=== PATIENT | male | born 1975 | race African-American/Black ===

== ENCOUNTER 2016-08-17 09:22 | Emergency (ER) | payer SELFPAY ==
[~2016-08-17] VITALS: Ht 172.7 cm; Wt 77.1 kg
--- NOTE | 2016-08-17 09:40 | PHYS DOC ---
Past Medical History Past Medical History: No Pertinent History Past Surgical History: No Surgical History Alcohol Use: Occasionally Drug Use: Marijuana Adult General Chief Complaint Chief Complaint: NAUSEA/VOMITING/DIARRHA HPI HPI Patient is a 40 year old male presents to the emergency department with complaints of vomiting and abdominal pain beginning this morning at approximately 5 AM, 4 hours prior to arrival. He states that yesterday evening he ate a piece of pizza with peppers and after that developed burning in his epigastric region. He states he's had no fever, no diarrhea. He does report a history of pancreatitis and did drink alcohol 2 days ago. Review of Systems Review of Systems Constitutional: Denies fever or chills [] Eyes: Denies change in visual acuity, redness, or eye pain [] HENT: Denies nasal congestion or sore throat [] Respiratory: Denies cough or shortness of breath [] Cardiovascular: No additional information not addressed in HPI [] GI: Abdominal pain, vomiting. No diarrhea. : Denies dysuria or hematuria [] Musculoskeletal: Denies back pain or joint pain [] Integument: Denies rash or skin lesions [] Neurologic: Denies headache, focal weakness or sensory changes [] Endocrine: Denies polyuria or polydipsia [] Current Medications Current Medications Current Medications Medications (Trade) Dose Ordered Sig/Zhang Start Time Stop Time Status Last Admin Dose Admin Info (Do NOT chart on this entry -- for MONITORING) 1 each PRN DAILY PRN 08/17/16 10:30 08/19/16 10:29 Iohexol (Omnipaque 300 Mg/ml) 75 ml 1X ONCE 08/17/16 10:30 08/17/16 10:31 DC 08/17/16 11:04 75 ML Ketorolac Tromethamine (Toradol) 30 mg 1X ONCE 08/17/16 10:15 08/17/16 10:17 DC 08/17/16 10:29 30 MG Morphine Sulfate 4 mg 1X ONCE 08/17/16 11:00 08/17/16 11:01 DC 08/17/16 10:55 4 MG Ondansetron HCl (Zofran) 4 mg 1X ONCE 08/17/16 09:45 08/17/16 09:46 DC 08/17/16 09:50 4 MG Sodium Chloride 1,000 ml @ 1,000 mls/hr 1X ONCE 08/17/16 09:45 08/17/16 10:44 DC 08/17/16 09:50 1,000 MLS/HR Allergies Allergies Allergies Coded Allergies Type Severity Reaction Last Updated Verified No Known Drug Allergies 05/07/15 No Physical Exam Physical Exam Constitutional: Well developed, well nourished, non-toxic appearance. [] HENT: Normocephalic, atraumatic, bilateral external ears normal, oropharynx moist, no oral exudates, nose normal. [] Eyes: PERRLA, EOMI, conjunctiva normal, no discharge. [] Neck: Normal range of motion, no tenderness, supple, no stridor. [] Cardiovascular:Heart rate regular rhythm, no murmur [] Lungs & Thorax: Bilateral breath sounds clear to auscultation, patient's hyperventilating [] Abdomen: Abdomen is flat, soft, nondistended. Bowel sounds normoactive. He has diffuse tenderness on exam without localization. There are no masses or pulsatile masses. Skin: Warm, dry, no erythema, no rash. [] Back: No tenderness, no CVA tenderness. [] Extremities: No tenderness, no cyanosis, no clubbing, ROM intact, no edema. [] Neurologic: Alert and oriented X 3, normal motor function, normal sensory function, no focal deficits noted. [] Psychologic: Affect normal, judgement normal, mood normal. [] Current Patient Data Vital Signs Vital Signs Date Time Temp Pulse Resp B/P (MAP) Pulse Ox O2 Delivery O2 Flow Rate FiO2 08/17/16 11:00 88 18 139/79 (99) 99 Room Air 08/17/16 09:34 99.1 99.1 Lab Values Laboratory Tests Test 08/17/16 09:45 08/17/16 11:00 White Blood Count 15.5 x10^3/uL (4.0-11.0) H Red Blood Count 5.23 x10^6/uL (4.30-5.70) Hemoglobin 15.7 g/dL (13.0-17.5) Hematocrit 44.1 % (39.0-53.0) Mean Corpuscular Volume 84 fL (79-100) Mean Corpuscular Hemoglobin 30 pg (25-35) Mean Corpuscular Hemoglobin Concent 36 g/dL (31-37) Red Cell Distribution Width 13.8 % (11.5-14.5) Platelet Count 244 x10^3/uL (140-400) Neutrophils (%) (Auto) 78 % (31-73) H Lymphocytes (%) (Auto) 15 % (24-48) L Monocytes (%) (Auto) 4 % (0-9) Eosinophils (%) (Auto) 2 % (0-3) Basophils (%) (Auto) 1 % (0-3) Neutrophils # (Auto) 12.1 x10^3uL (1.8-7.7) H Lymphocytes # (Auto) 2.3 x10^3/uL (1.0-4.8) Monocytes # (Auto) 0.7 x10^3/uL (0.0-1.1) Eosinophils # (Auto) 0.3 x10^3/uL (0.0-0.7) Basophils # (Auto) 0.1 x10^3/uL (0.0-0.2) Sodium Level 139 mmol/L (136-145) Potassium Level 3.5 mmol/L (3.5-5.1) Chloride Level 104 mmol/L (98-107) Carbon Dioxide Level 20 mmol/L (21-32) L Anion Gap 15 (6-14) H Blood Urea Nitrogen 16 mg/dL (8-26) Creatinine 1.2 mg/dL (0.7-1.3) Estimated GFR (Cockcroft-Gault) 81.6 BUN/Creatinine Ratio 13 (6-20) Glucose Level 153 mg/dL (70-99) H Calcium Level 9.5 mg/dL (8.5-10.1) Total Bilirubin 0.6 mg/dL (0.2-1.0) Aspartate Amino Transferase (AST) 29 U/L (15-37) Alanine Aminotransferase (ALT) 38 U/L (16-63) Alkaline Phosphatase 142 U/L (46-116) H Total Protein 7.7 g/dL (6.4-8.2) Albumin 3.8 g/dL (3.4-5.0) Albumin/Globulin Ratio 1.0 (1.0-1.7) Amylase Level 90 U/L (25-115) Lipase 215 U/L (73-393) Urine Collection Type Unknown Urine Color Yellow Urine Clarity Clear Urine pH 8.0 Urine Specific [place] 1.010 Urine Protein Negative mg/dL (NEG-TRACE) Urine Glucose (UA) 100 mg/dL (NEG) Urine Ketones (Stick) Negative mg/dL (NEG) Urine Blood Negative (NEG) Urine Nitrite Negative (NEG) Urine Bilirubin Negative (NEG) Urine Urobilinogen Dipstick 0.2 mg/dL (0.2 mg/dL) Urine Leukocyte Esterase Negative (NEG) Urine RBC Occ /HPF (0-2) Urine WBC Occ /HPF (0-4) Urine Bacteria 0 /HPF (0-FEW) Urine Mucus Slight /LPF Laboratory Tests 08/17/16 09:45 Laboratory Tests 08/17/16 09:45 EKG EKG [] Radiology/Procedures Radiology/Procedures []ATIENT: JOSSELYN HOFFMAN ACCOUNT: [id number] : 1975 LOCATION: ER AGE: 40 SEX: M EXAM STATUS: REG ER ORD. PHYSICIAN: YONATAN REDDY APRN REASON: ABD pain, leukocytosis PROCEDURE: CT ABD PELV W/ IV CONTRST ONLY CT of the abdomen and pelvis with contrast, 08/17/2016: History: Abdominal pain, leukocytosis Multidetector CT imaging was performed following an IV bolus injection of iodinated contrast material. No oral contrast material was administered for this study. Portions of the midabdomen were partially obscured by motion artifact. The liver is unremarkable. No gallbladder abnormality is seen. The pancreas cannot be clearly from unopacified bowel, but shows no specific abnormality. The spleen is of normal size. There is no evidence of renal obstruction or mass. There is minimal aortic calcific plaquing. No abdominal or pelvic adenopathy is seen. The bowel loops are not dilated. The appendix extends superiorly in the right paracolic gutter. It contains gas without evidence of acute appendicitis. No free air is evident in the abdomen or pelvis. A trace amount of free fluid is seen seen in the pelvis. IMPRESSION: 1. Minimal free fluid in the pelvis. 2. The abdomen and pelvis are otherwise unremarkable. PQRS Compliance Statement: One or more of the following individualized dose reduction techniques were utilized for this examination: 1. Automated exposure control 2. Adjustment of the mA and/or kV according to patient size 3. Use of iterative reconstruction technique DICTATED and SIGNED BY: AN PAVON MD DATE: 08/17/16 1155 CC: NO PCP; NON,STAFF; YONATAN REDDY APRN ~ Course & Med Decision Making Course & Med Decision Making Pertinent Labs and Imaging studies reviewed. (See chart for details) Pt reports that he has decreased in pain and was able to sleep at intervals. He is requesting more pain medications. He states his nausea is well controlled. He is advised at this time of his wait for CT abdomen and pelvis []1213: Patient is sleeping, appears to be comfortable. Awakens easily. He has no complaints. Abdomen soft, nontender. He's had no further vomiting while in the emergency department. Dragon Disclaimer Dragon Disclaimer This electronic medical record was generated, in whole or in part, using a voice recognition dictation system. Departure Departure Impression: Primary Impression: Gastroenteritis Disposition: HOME, SELF-CARE Condition: STABLE Referrals: NO PCP (PCP) Patient Instructions: Viral Gastroenteritis Additional Instructions: Clear liquid diet for 24 hours. No further vomiting or abdominal pain, advanced to bland diet. Please return to the emergency department if you have new symptoms or concerns, worsening of current symptoms, fever of 101 or greater. Plan to follow up with her primary care provider for reevaluation 24 hours. Scripts Ondansetron (ZOFRAN ODT) 4 Mg Tab.rapdis 1 TAB SL Q8HRS Y for NAUSEA, #15 TAB Prov: YONATAN REDDY APRN 08/17/16 Dicyclomine Hcl (BENTYL) 10 Mg Capsule 1 CAP PO TID Y for abd pain, #20 CAP 1 Refill Prov: YONATAN REDDY APRN 08/17/16 YONATAN REDDY APRN Aug 17, 2016 09:40
[2016-08-17] MEDS ORDERED: MORPHINE SULFATE 4 MG/ML DISP.SYRIN. IV ONE ×2 (09:45→11:00)
[2016-08-17] MEDS ORDERED: ONDANSETRON PF 4 MG/2 ML VIAL. IV ONE (09:45)
[2016-08-17] MEDS ORDERED: IV NORMAL SALINE 1000ML BAG 1,000 ML IV ONE (09:45)
[2016-08-17 09:52] LABS: BASO # 0.1 x10^3/uL (0.0-0.2); BASO % 1 % (0-3); EOS % 2 % (0-3); HEMATOCRIT 44.1 % (39.0-53.0); HEMOGLOBIN 15.7 g/dL (13.0-17.5); LYMPH # 2.3 x10^3/uL (1.0-4.8); LYMPH % 15 % (24-48); MEAN CORPUSCULAR HEMOGLOBIN 30 pg (25-35); MEAN CORPUSCULAR HGB CONC 36 g/dL (31-37); MEAN CORPUSCULAR VOLUME 84 fL (79-100); MONO % 4 % (0-9); NEUT % 78 % (31-73); PLATELET COUNT 244 x10^3/uL (140-400); RED BLOOD COUNT 5.23 x10^6/uL (4.30-5.70); RED CELL DISTRIBUTION WIDTH 13.8 % (11.5-14.5); WHITE BLOOD COUNT 15.5 x10^3/uL (4.0-11.0)
[2016-08-17 10:03] LABS: CALCIUM 9.5 mg/dL (8.5-10.1); CREATININE 1.2 mg/dL (0.7-1.3); GFR 81.6; POTASSIUM 3.5 mmol/L (3.5-5.1)
[2016-08-17 10:09] LABS: ALBUMIN 3.8 g/dL (3.4-5.0); TOTAL BILIRUBIN 0.6 mg/dL (0.2-1.0); TOTAL PROTEIN 7.7 g/dL (6.4-8.2)
[2016-08-17] MEDS ORDERED: KETOROLAC TROMETHAMINE 30 MG/ML INJ. IV ONE (10:15)
[2016-08-17] MEDS ORDERED: CONTRAST GIVEN MC PRN (10:30)
[2016-08-17] MEDS ORDERED: IOHEXOL 300 MG/ML 75 ML VIAL IV ONE (10:30)
[2016-08-17 11:11] LABS: BILIRUBIN,URINE NEGATIVE (NEG); GLUCOSE,URINE 100 mg/dL (NEG); NITRITE,URINE NEGATIVE (NEG); PROTEIN,URINE NEGATIVE (NEG-TRACE); UROBILINOGEN,URINE 0.2 mg/dL (0.2 mg/dL)
[2016-08-17 11:18] LABS: BACTERIA,URINE 0 /HPF (0-FEW); RBC,URINE OCC /HPF (0-2); WBC,URINE OCC /HPF (0-4)
[2016-08-17 12:00] VITALS: BP 131/79
--- NOTE | 2016-08-17 12:06 | RAD ---
CT of the abdomen and pelvis with contrast, 08/17/2016: History: Abdominal pain, leukocytosis Multidetector CT imaging was performed following an IV bolus injection of iodinated contrast material. No oral contrast material was administered for this study. Portions of the midabdomen were partially obscured by motion artifact. The liver is unremarkable. No gallbladder abnormality is seen. The pancreas cannot be clearly from unopacified bowel, but shows no specific abnormality. The spleen is of normal size. There is no evidence of renal obstruction or mass. There is minimal aortic calcific plaquing. No abdominal or pelvic adenopathy is seen. The bowel loops are not dilated. The appendix extends superiorly in the right paracolic gutter. It contains gas without evidence of acute appendicitis. No free air is evident in the abdomen or pelvis. A trace amount of free fluid is seen seen in the pelvis. IMPRESSION: 1. Minimal free fluid in the pelvis. 2. The abdomen and pelvis are otherwise unremarkable. PQRS Compliance Statement: One or more of the following individualized dose reduction techniques were utilized for this examination: 1. Automated exposure control 2. Adjustment of the mA and/or kV according to patient size 3. Use of iterative reconstruction technique
[2016-08-17] MEDS ORDERED: ONDA4TAB10 SL (12:16)
[2016-08-17] MEDS ORDERED: DICY10CA53 PO (12:16)
== END 2016-08-17 12:15 | disposition home or self-care (01) ==
LOC: ER 09:22
DX: K52.9 Noninfective gastroenteritis and colitis, unspecified (principal); F12.10 Cannabis abuse, uncomplicated
CPT/HCPCS: 36415; 74177; 80053; 81001; 82150; 83690; 85027; 96361; 96374; 96375; 96376; 99285; J1885; J2270; J2405; J7030; Q9967

== ENCOUNTER 2016-08-19 08:51 | Inpatient (IN) | payer SELFPAY ==
[~2016-08-19] VITALS: Ht 175.3 cm; Wt 77.1 kg
[~2016-08-19 08:51] MED LIST: DICY10CA53 PO; ONDA4TAB10 SL
[2016-08-19] MEDS ORDERED: ONDANSETRON PF 4 MG/2 ML VIAL. IV ONE (09:15)
[2016-08-19] MEDS ORDERED: PROMETHAZINE IM 25 MG/ML VIAL IM ONE (09:15)
[2016-08-19] MEDS ORDERED: IV NORMAL SALINE 1000ML BAG 1,000 ML IV ONE (09:15)
--- NOTE | 2016-08-19 09:17 | PHYS DOC ---
Past Medical History Past Medical History: Pancreatitis Past Surgical History: No Surgical History Alcohol Use: Occasionally Drug Use: Marijuana Adult General Chief Complaint Chief Complaint: ABDOMINAL PAIN HPI HPI Patient is a 40 year old male presents to the emergency department by EMS with c/o abdominal pain. Patient states he was seen here Wednesday for abdominal pain and vomiting. He was given medications and discharged home. He states last night he was able to eat and he had ice cream he states the pain developed today with vomiting. He denies alcohol since last Wednesday. He denies fever, chills and diarrhea. Review of Systems Review of Systems Constitutional: Denies fever or chills [] Eyes: Denies change in visual acuity, redness, or eye pain [] HENT: Denies nasal congestion or sore throat [] Respiratory: Denies cough or shortness of breath [] Cardiovascular: No additional information not addressed in HPI [] GI: abdominal pain, nausea, vomiting, denies bloody stools or diarrhea [] : Denies dysuria or hematuria [] Musculoskeletal: Denies back pain or joint pain [] Integument: Denies rash or skin lesions [] Neurologic: Denies headache, focal weakness or sensory changes [] Endocrine: Denies polyuria or polydipsia [] Current Medications Current Medications Current Medications Medications (Trade) Dose Ordered Sig/Zhang Start Time Stop Time Status Last Admin Dose Admin Fentanyl Citrate (Fentanyl 2ml Vial) 50 mcg PRN Q15MIN PRN 08/19/16 09:15 08/20/16 09:14 08/19/16 10:14 50 MCG Haloperidol Lactate (Haldol) 2 mg 1X ONCE 08/19/16 10:15 08/19/16 10:16 DC 08/19/16 10:14 2 MG Info (Do NOT chart on this entry -- for MONITORING) 1 each PRN DAILY PRN 08/19/16 10:00 08/21/16 09:59 Iohexol (Omnipaque 300 Mg/ml) 75 ml 1X ONCE 08/19/16 09:45 08/19/16 09:46 DC 08/19/16 10:38 75 ML Ondansetron HCl (Zofran) 4 mg 1X ONCE 08/19/16 09:15 08/19/16 09:16 DC 08/19/16 09:21 4 MG Promethazine HCl (Phenergan Im) 25 mg 1X ONCE 08/19/16 09:15 08/19/16 09:16 DC 08/19/16 09:21 25 MG Sodium Chloride 1,000 ml @ 1,000 mls/hr 1X ONCE 08/19/16 09:15 08/19/16 10:14 DC 08/19/16 09:22 1,000 MLS/HR Allergies Allergies Allergies Coded Allergies Type Severity Reaction Last Updated Verified No Known Drug Allergies 05/07/15 No Physical Exam Physical Exam Constitutional: Well developed, well nourished, no acute distress, non-toxic appearance. [] HENT: Normocephalic, atraumatic, bilateral external ears normal, oropharynx moist, no oral exudates, nose normal. [] Eyes: PERRLA, EOMI, conjunctiva normal, no discharge. [] Neck: Normal range of motion, no tenderness, supple, no stridor. [] Cardiovascular:Heart rate regular rhythm, no murmur [] Lungs & Thorax: Bilateral breath sounds clear to auscultation [] Abdomen: Bowel sounds hypoactive, soft, generalized tenderness, no masses, no pulsatile masses. Patient with clear mucus emesis Skin: Warm, dry, no erythema, no rash. [] Back: No tenderness Extremities: No tenderness, no cyanosis, no clubbing, ROM intact, no edema. [] Neurologic: Alert and oriented X 3, normal motor function, normal sensory function, no focal deficits noted. [] Psychologic: Affect normal, judgement normal, mood normal. [] Current Patient Data Vital Signs Vital Signs Date Time Temp Pulse Resp B/P (MAP) Pulse Ox O2 Delivery O2 Flow Rate FiO2 08/19/16 08:53 98.5 78 26 172/84 (113) 100 Room Air 98.5 Lab Values Laboratory Tests Test 08/19/16 09:14 White Blood Count 13.4 x10^3/uL (4.0-11.0) H Red Blood Count 5.32 x10^6/uL (4.30-5.70) Hemoglobin 16.1 g/dL (13.0-17.5) Hematocrit 45.3 % (39.0-53.0) Mean Corpuscular Volume 85 fL (79-100) Mean Corpuscular Hemoglobin 30 pg (25-35) Mean Corpuscular Hemoglobin Concent 36 g/dL (31-37) Red Cell Distribution Width 13.9 % (11.5-14.5) Platelet Count 262 x10^3/uL (140-400) Neutrophils (%) (Auto) 74 % (31-73) H Lymphocytes (%) (Auto) 17 % (24-48) L Monocytes (%) (Auto) 6 % (0-9) Eosinophils (%) (Auto) 3 % (0-3) Basophils (%) (Auto) 1 % (0-3) Neutrophils # (Auto) 9.9 x10^3uL (1.8-7.7) H Lymphocytes # (Auto) 2.3 x10^3/uL (1.0-4.8) Monocytes # (Auto) 0.8 x10^3/uL (0.0-1.1) Eosinophils # (Auto) 0.3 x10^3/uL (0.0-0.7) Basophils # (Auto) 0.1 x10^3/uL (0.0-0.2) Sodium Level 135 mmol/L (136-145) L Potassium Level 4.2 mmol/L (3.5-5.1) Chloride Level 102 mmol/L (98-107) Carbon Dioxide Level 22 mmol/L (21-32) Anion Gap 11 (6-14) Blood Urea Nitrogen 8 mg/dL (8-26) Creatinine 1.2 mg/dL (0.7-1.3) Estimated GFR (Cockcroft-Gault) 81.6 BUN/Creatinine Ratio 7 (6-20) Glucose Level 123 mg/dL (70-99) H Calcium Level 9.3 mg/dL (8.5-10.1) Total Bilirubin 0.9 mg/dL (0.2-1.0) Aspartate Amino Transferase (AST) 38 U/L (15-37) H Alanine Aminotransferase (ALT) 30 U/L (16-63) Alkaline Phosphatase 119 U/L (46-116) H Total Protein 8.0 g/dL (6.4-8.2) Albumin 3.6 g/dL (3.4-5.0) Albumin/Globulin Ratio 0.8 (1.0-1.7) L Amylase Level 85 U/L (25-115) Lipase 204 U/L (73-393) Ethyl Alcohol Level < 10 mg/dL (0-10) Laboratory Tests 08/19/16 09:14 Laboratory Tests 08/19/16 09:14 EKG EKG [] Radiology/Procedures Radiology/Procedures [][facility] [address] [place] [address] IMAGING REPORT Signed PATIENT: JOSSELYN HOFFMAN ACCOUNT: [id number] : 1975 LOCATION: ER AGE: 40 SEX: M EXAM STATUS: REG ER ORD. PHYSICIAN: ROSEANN RODRIGUES APRN REASON: abdominal pain hx pancreatitis PROCEDURE: CT ABD PELV W/ IV CONTRST ONLY CT of the abdomen and pelvis with contrast, 08/19/2016: History: Bilateral upper abdominal pain, history pancreatitis Multidetector CT imaging was performed following an IV bolus injection of iodinated contrast material. No oral contrast material was administered as requested. Comparison is made to a study from 08/17/2016. No hepatic abnormality is detected. The gallbladder is unremarkable. The pancreas cannot be clearly from unopacified bowel but shows no specific abnormality. No peripancreatic inflammation is seen. The spleen is of normal size. No renal abnormality is detected. There is minimal calcific plaquing of the abdominal aorta. No abdominal or pelvic adenopathy is delineated. The bowel loops are not dilated. The appendix is visualized and shows no abnormality. No free fluid or free air is evident in the abdomen or pelvis. IMPRESSION: No acute abdominal or pelvic abnormality is detected. PQRS Compliance Statement: One or more of the following individualized dose reduction techniques were utilized for this examination: 1. Automated exposure control 2. Adjustment of the mA and/or kV according to patient size 3. Use of iterative reconstruction technique DICTATED and SIGNED BY: AN PAVON MD DATE: 08/19/16 1109 CC: ROSEANN RODRIGUES APRN; NO PCP ~ Course & Med Decision Making Course & Med Decision Making Pertinent Labs and Imaging studies reviewed. (See chart for details) CBC, CMP amylase and lipase within normal limits. CT scan normal. Patient continues to have abdominal discomfort with nausea vomiting. Patient had been provided Zofran and Phenergan and Haldol. Spoke with the hospitalist in regards to admission into the hospital. She agrees with the admission. Patient will remain nothing by mouth. Orders will be completed. [] Dragon Disclaimer Dragon Disclaimer This electronic medical record was generated, in whole or in part, using a voice recognition dictation system. Departure Departure Impression: Primary Impression: Abdominal pain Additional Impression: Nausea & vomiting Disposition: ADMITTED INPATIENT Admitting Physician: Other (Dr Vo) Condition: STABLE Referrals: NO PCP (PCP) Problem Qualifiers ROSEANN RODRIGUES APRN Aug 19, 2016 09:16
[2016-08-19] MEDS: fentaNYL PF VIAL 100 MCG/2 ML VIAL IV PRN ×5 (09:21→23:08)
[2016-08-19 09:22] LABS: BASO # 0.1 x10^3/uL (0.0-0.2); BASO % 1 % (0-3); EOS % 3 % (0-3); HEMATOCRIT 45.3 % (39.0-53.0); HEMOGLOBIN 16.1 g/dL (13.0-17.5); LYMPH # 2.3 x10^3/uL (1.0-4.8); LYMPH % 17 % (24-48); MEAN CORPUSCULAR HEMOGLOBIN 30 pg (25-35); MEAN CORPUSCULAR HGB CONC 36 g/dL (31-37); MEAN CORPUSCULAR VOLUME 85 fL (79-100); MONO % 6 % (0-9); NEUT % 74 % (31-73); PLATELET COUNT 262 x10^3/uL (140-400); RED BLOOD COUNT 5.32 x10^6/uL (4.30-5.70); RED CELL DISTRIBUTION WIDTH 13.9 % (11.5-14.5); WHITE BLOOD COUNT 13.4 x10^3/uL (4.0-11.0)
[2016-08-19] MEDS ORDERED: IOHEXOL 300 MG/ML 75 ML VIAL IV ONE (09:45)
[2016-08-19 09:49] LABS: ALBUMIN 3.6 g/dL (3.4-5.0); ALBUMIN/GLOBULIN RATIO 0.8 (1.0-1.7); CALCIUM 9.3 mg/dL (8.5-10.1); CREATININE 1.2 mg/dL (0.7-1.3); GFR 81.6; POTASSIUM 4.2 mmol/L (3.5-5.1); TOTAL BILIRUBIN 0.9 mg/dL (0.2-1.0)
[2016-08-19] MEDS ORDERED: CONTRAST GIVEN MC PRN (10:00)
[2016-08-19] MEDS ORDERED: HALOPERIDOL LACTATE 5 MG/ML VIAL. IVP ONE (10:15)
--- NOTE | 2016-08-19 11:07 | RAD ---
CT of the abdomen and pelvis with contrast, 08/19/2016: History: Bilateral upper abdominal pain, history pancreatitis Multidetector CT imaging was performed following an IV bolus injection of iodinated contrast material. No oral contrast material was administered as requested. Comparison is made to a study from 08/17/2016. No hepatic abnormality is detected. The gallbladder is unremarkable. The pancreas cannot be clearly from unopacified bowel but shows no specific abnormality. No peripancreatic inflammation is seen. The spleen is of normal size. No renal abnormality is detected. There is minimal calcific plaquing of the abdominal aorta. No abdominal or pelvic adenopathy is delineated. The bowel loops are not dilated. The appendix is visualized and shows no abnormality. No free fluid or free air is evident in the abdomen or pelvis. IMPRESSION: No acute abdominal or pelvic abnormality is detected. PQRS Compliance Statement: One or more of the following individualized dose reduction techniques were utilized for this examination: 1. Automated exposure control 2. Adjustment of the mA and/or kV according to patient size 3. Use of iterative reconstruction technique
[2016-08-19] MEDS ORDERED: fentaNYL PF VIAL 100 MCG/2 ML VIAL IV PRN (12:00)
[2016-08-19] MEDS ORDERED: ONDANSETRON PF 4 MG/2 ML VIAL. IV PRN (12:00)
[2016-08-19] MEDS ORDERED: DICYCLOMINE 20 MG/2 ML AMPUL. IM ONE (12:45)
[2016-08-19] MEDS: IV NORMAL SALINE 1000ML BAG 1,000 ML IV SCH ×2 (13:47→21:25)
[2016-08-19 13:50] VITALS: BP 152/86
[2016-08-19 15:00] VITALS: BP 150/84
[2016-08-19] MEDS ORDERED: PROCHLORPERAZINE 10 MG/2 ML VIAL. IV ONE (15:45)
[2016-08-19] MEDS ORDERED: MORPHINE SULFATE 4 MG/ML DISP.SYRIN. IV ONE (15:45)
[2016-08-19] MEDS: ONDANSETRON PF 4 MG/2 ML VIAL. IV PRN (20:02)
[2016-08-19] MEDS: FAMOTIDINE 20 MG/2 ML VIAL IVP SCH (20:37)
[2016-08-19] MEDS: SUCRALFATE 1 GM/10 ML ORAL.SUSP. PEG SCH ×2 (21:08→21:09)
[2016-08-19] MEDS: SUCRALFATE 1 GM/10 ML ORAL.SUSP. PO SCH (21:59)
--- NOTE | 2016-08-19 22:09 | HP ---
ADMIT DATE: 08/19/2016 CHIEF COMPLAINT: Abdominal pain, intractable nausea and vomiting. HISTORY OF PRESENT ILLNESS: The patient is a 40-year-old -[place] gentleman who presented for the second time in 3 days to the Emergency Room complaining of nausea and abdominal pain. On Wednesday, he had been sent home with medications, but stated that last night his symptoms recurred with nausea after eating some ice cream. He developed abdominal pain today with vomiting. Denies any fevers, chills, any diarrhea. No sick contacts at home. On further questioning, he relates that he has had episodes like this in the past. He relates that typically he has some about twice a year and usually goes to [facility] and never had an endoscopy done in the past. PAST MEDICAL HISTORY: Pancreatitis. FAMILY HISTORY: No abdominal abnormalities known. SOCIAL HISTORY: Lives with his sister. 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 Smokes about a pack a day as well as pot on a regular basis. ALLERGIES: No known drug allergies. MEDICATIONS: MAR reconciled with home medications. REVIEW OF SYSTEMS: Positive as per HPI. He denies any blood in his vomitus. Rest of organ system review is benign. PHYSICAL EXAMINATION: VITAL SIGNS: From today show a blood pressure of 150/84, heart rate of 70, respiratory rate at 18. He is afebrile. GENERAL: This is a well-nourished, well-developed 40-year-old -[place]ian gentleman, awake, alert, in mild distress. HEENT: Shows no scleral icterus. NECK: Supple. LUNGS: Clear to auscultation bilaterally. ABDOMEN: Tight, anticipatory flinching, but seems to have pain in the epigastric area. EXTREMITIES: Show no edema, no clubbing, no cyanosis. SKIN: Warm, soft and dry without any rash. EXTREMITIES: He is able to move without any difficulties in bed, although prefers lying curled up in the position. LABORATORY DATA: CBC with a WBC of 13.4, hemoglobin of 16.1, platelets of 262. Chemistries with a BUN and creatinine of 8 and 1.0. Electrolytes within normal limits, AST at 38, alkaline phosphatase at 119, total bili normal. Tox screen negative for alcohol. Drug screen was not obtained. ASSESSMENT AND PLAN: The patient is a 40-year-old gentleman presenting with intractable episodic nausea. He now has abdominal pain after several days of retching. My suspicion is that this is cyclical vomiting syndrome brought on by chronic marijuana use. We will start him on Zofran and Compazine alternatingly to get ahead of the nausea. For his abdominal pain, we will start Carafate as well as famotidine. Can switch to p.o. Protonix in the morning for acid control. He still has fentanyl p.r.n., but I suspect this actually may worsen his nausea symptoms. We will try and minimize. Keep him n.p.o. for now. Continue IV fluids. We will obtain a GI consult for consideration of EGD, although not sure that this is acutely indicated. Discussed with the patient that he needs to stop smoking pot as he may suffer adverse side effects from this acutely. Blood pressure is borderline high. I suspect this may be related to pain. We will monitor for the time being without additional further medication. DAWSON COTTON MD DR: DAVID/madhuri JOB#: [id number] / [id number] CHRISTINE
[2016-08-19 23:00] VITALS: BP 150/97
[2016-08-20 02:37] VITALS: BP 166/99
[2016-08-20] MEDS: IV NORMAL SALINE 1000ML BAG 1,000 ML IV SCH ×3 (03:51→22:38)
[2016-08-20] MEDS: PROCHLORPERAZINE 10 MG/2 ML VIAL. IV PRN ×3 (03:53→20:49)
[2016-08-20] MEDS: fentaNYL PF VIAL 100 MCG/2 ML VIAL IV PRN ×9 (03:53→22:23)
[2016-08-20 05:12] LABS: BASO % 0 % (0-3); EOS % 0 % (0-3); HEMATOCRIT 44.9 % (39.0-53.0); HEMOGLOBIN 15.3 g/dL (13.0-17.5); LYMPH # 1.5 x10^3/uL (1.0-4.8); LYMPH % 11 % (24-48); MEAN CORPUSCULAR HEMOGLOBIN 30 pg (25-35); MEAN CORPUSCULAR HGB CONC 34 g/dL (31-37); MEAN CORPUSCULAR VOLUME 86 fL (79-100); MONO % 7 % (0-9); NEUT % 82 % (31-73); PLATELET COUNT 241 x10^3/uL (140-400); RED BLOOD COUNT 5.19 x10^6/uL (4.30-5.70); RED CELL DISTRIBUTION WIDTH 13.7 % (11.5-14.5)
[2016-08-20 05:28] LABS: CALCIUM 8.9 mg/dL (8.5-10.1); GFR 100.7; POTASSIUM 3.6 mmol/L (3.5-5.1)
[2016-08-20 07:00] VITALS: BP 116/77
[2016-08-20] MEDS: SUCRALFATE 1 GM/10 ML ORAL.SUSP. PO SCH ×4 (08:22→20:53)
[2016-08-20] MEDS: PANTOPRAZOLE 40 MG TABLET.DR. PO SCH (08:22)
[2016-08-20] MEDS: FAMOTIDINE 20 MG/2 ML VIAL IVP SCH (08:23)
[2016-08-20] MEDS: ONDANSETRON PF 4 MG/2 ML VIAL. IV PRN ×2 (08:23→17:14)
--- NOTE | 2016-08-20 09:47 | PDOC2 ---
GI CONSULT Reason For Consult: Nausea, abd pain HPI: HPI: 40 y/o AA male admitted after two ER evaluations this week. Reports five year history of flares of n/v and abdominal pain, sometimes w/ diarrhea. One episode thought to be related to alcohol-induced pancreatitis, another thought to be related to bad food that sat in his car for a few hours, other episodes without clear etiology. Symptoms recurred on Wednesday. The day before was [place] his [place]. He awoke that morning, had a runny stool, started vomiting, and then started having pain superior to umbilicus associated w/ a "bump." Wonders about a hernia. Came to the ER, was discharged to home w/ [place] and [place]. [place] better the next day, ate some chicken noodle soup and a lot of ice cream. [place] bad again w/ vomiting and pain on Wednesday. Currently feeling better but not interested in trying diet. Has noted some nocturnal reflux recently; his girlfriend has given him some medication for this. Last BM was yesterday morning, a soft stool. Uses marijuana almost daily, not fo GI symptoms, but perhaps has helped GI symptoms in the past. No previous EGD or colonoscopy but the thought of either makes him nervous because his mom had an EGD "that tore her esophagus." Denies weight loss, constipation, hematemesis, hematochezia, melena. Did have GI eval here in 2006 for similar symptoms thought to be related to cannabinoids and cocaine use. PMH: PMH: pancreatitis, GERD FH: Family History: Other ("torn esophagus" after EGD) Social History: Smoke: 1 pack per day ALCOHOL: social Drugs: Cocaine (in the past), Marijuana (frequently) ROS: GEN: Denies fevers, chills, sweats HEENT: Denies blurred vision, sore throat CV: Denies chest pain RESP: Denies shortness of air, cough GI: Per HPI : Denies hematuria, dysuria ENDO: Denies weight changes NEURO: Denies confusion, dizziness MSK: Denies weakness, joint pain/swelling SKIN: Denies jaundice, pruritus Vitals: Vitals: Vital Signs Date Time Temp Pulse Resp B/P (MAP) Pulse Ox O2 Delivery O2 Flow Rate FiO2 08/20/16 09:00 Room Air 08/20/16 07:00 98.9 90 17 116/77 (90) 97 98.9 Labs: Labs: Laboratory Tests Test 08/20/16 03:55 White Blood Count 14.0 x10^3/uL (4.0-11.0) Red Blood Count 5.19 x10^6/uL (4.30-5.70) Hemoglobin 15.3 g/dL (13.0-17.5) Hematocrit 44.9 % (39.0-53.0) Mean Corpuscular Volume 86 fL (79-100) Mean Corpuscular Hemoglobin 30 pg (25-35) Mean Corpuscular Hemoglobin Concent 34 g/dL (31-37) Red Cell Distribution Width 13.7 % (11.5-14.5) Platelet Count 241 x10^3/uL (140-400) Neutrophils (%) (Auto) 82 % (31-73) Lymphocytes (%) (Auto) 11 % (24-48) Monocytes (%) (Auto) 7 % (0-9) Eosinophils (%) (Auto) 0 % (0-3) Basophils (%) (Auto) 0 % (0-3) Neutrophils # (Auto) 11.4 x10^3uL (1.8-7.7) Lymphocytes # (Auto) 1.5 x10^3/uL (1.0-4.8) Monocytes # (Auto) 1.0 x10^3/uL (0.0-1.1) Eosinophils # (Auto) 0.0 x10^3/uL (0.0-0.7) Basophils # (Auto) 0.0 x10^3/uL (0.0-0.2) Sodium Level 139 mmol/L (136-145) Potassium Level 3.6 mmol/L (3.5-5.1) Chloride Level 102 mmol/L (98-107) Carbon Dioxide Level 26 mmol/L (21-32) Anion Gap 11 (6-14) Blood Urea Nitrogen 7 mg/dL (8-26) Creatinine 1.0 mg/dL (0.7-1.3) Estimated GFR (Cockcroft-Gault) 100.7 Glucose Level 107 mg/dL (70-99) Calcium Level 8.9 mg/dL (8.5-10.1) Allergies: Coded Allergies: No Known Drug Allergies (Unverified , 05/07/15) Medications: Current Medications Medications (Trade) Dose Ordered Sig/Zhang Route PRN Reason Start Time Stop Time Status Last Admin Dose Admin Iohexol (Omnipaque 300 Mg/ml) 75 ml 1X ONCE IV 08/19/16 09:45 08/19/16 09:46 DC 08/19/16 10:38 Haloperidol Lactate (Haldol) 2 mg 1X ONCE IVP 08/19/16 10:15 08/19/16 10:16 DC 08/19/16 10:14 Ondansetron HCl (Zofran) 4 mg PRN Q8HRS PRN IV NAUSEA/VOMITING 08/19/16 12:00 08/19/16 19:27 DC 08/19/16 13:46 Fentanyl Citrate (Fentanyl 2ml Vial) 50 mcg PRN Q2HR PRN IV PAIN 08/19/16 12:00 08/19/16 19:27 DC 08/19/16 14:50 Sodium Chloride 1,000 ml @ 125 mls/hr Q8H IV 08/19/16 13:00 08/20/16 12:59 08/20/16 03:51 Dicyclomine HCl (Bentyl) 10 mg 1X ONCE IM 08/19/16 12:45 08/19/16 12:46 DC 08/19/16 13:09 Morphine Sulfate 4 mg 1X ONCE IV 08/19/16 15:45 08/19/16 15:46 DC 08/19/16 16:08 Prochlorperazine Edisylate (Compazine) 10 mg 1X ONCE IV 08/19/16 15:45 08/19/16 15:46 DC 08/19/16 16:08 Fentanyl Citrate (Fentanyl 2ml Vial) 25 mcg PRN Q2HR PRN IV PAIN 08/19/16 19:30 08/20/16 08:23 Ondansetron HCl (Zofran) 8 mg PRN Q8HRS PRN IV NAUSEA/VOMITING 08/19/16 19:30 08/20/16 08:23 Prochlorperazine Edisylate (Compazine) 10 mg PRN Q8HRS PRN IV NAUSEA/VOMITING 08/19/16 19:30 08/20/16 03:53 Famotidine (Pepcid) 20 mg BID IVP 08/19/16 21:00 08/20/16 08:23 Pantoprazole Sodium (Protonix) 40 mg DAILYAC PO 08/20/16 07:30 08/20/16 08:22 Sucralfate (Carafate) 1 gm QIDACHS PO 08/19/16 22:00 08/20/16 08:22 Imaging: Imaging: CT A/P 08/19/16 IMPRESSION: No acute abdominal or pelvic abnormality is detected. CT A/P 08/17/16 IMPRESSION: 1. Minimal free fluid in the pelvis. 2. The abdomen and pelvis are otherwise unremarkable. CT A/P 04/21/13 IMPRESSION: No acute abdominal or pelvic abnormality is detected. PE: GEN: NAD HEENT: Atraumatic, PERRL LUNGS: CTAB HEART: RRR ABD: NABS, S/ND, small firm area superior to umbilicus, non-tender EXTREMITY: No edema SKIN: No rashes, no jaundice NEURO/PSYCH: A & O 3 A/P: A/P: Abd pain, n/v -recurrent symptoms (estimates about twice yearly), in the past thought to be related to polysubstance abuse Substance abuse -admits to frequent use of marijuana Acid reflux -has occurred during the night recently H/o pancreatitis -?related to alcohol CRC screen -no previous colonoscopy, average risk -- Symptoms possibly related to cannabis. Is NPO w/o desire to advance diet yet. On H2 santana IV, PO PPI, and Carafate. Continue same for now, Dr. Marino to see later. MIKE ANDRADE Aug 20, 2016 09:47
[2016-08-20 10:49] VITALS: BP 129/78
[2016-08-20 14:59] VITALS: BP 158/89
[2016-08-20 19:00] VITALS: BP 157/93
[2016-08-20] MEDS: FAMOTIDINE 20 MG TABLET. PO SCH (20:53)
--- NOTE | 2016-08-20 22:50 | PDOC ---
PROGRESS NOTES Chief Complaint Chief Complaint Probable cyclic vomiting syndrome Drug use ( prior cocain and Marajuana) pancreatitis, GERD History of Present Illness History of Present Illness Resting with NAD on left side VSS DW RN labs noted notes reviewed Vitals Vitals Vital Signs Date Time Temp Pulse Resp B/P (MAP) Pulse Ox O2 Delivery O2 Flow Rate FiO2 08/20/16 22:23 19 Room Air 08/20/16 19:00 98.3 85 157/93 (114) 96 98.3 Physical Exam General: No acute distress Heart: Regular rate, No murmurs Lungs: Clear Abdomen: Other (tender) Labs LABS Laboratory Tests Test 08/20/16 03:55 White Blood Count 14.0 x10^3/uL (4.0-11.0) Red Blood Count 5.19 x10^6/uL (4.30-5.70) Hemoglobin 15.3 g/dL (13.0-17.5) Hematocrit 44.9 % (39.0-53.0) Mean Corpuscular Volume 86 fL (79-100) Mean Corpuscular Hemoglobin 30 pg (25-35) Mean Corpuscular Hemoglobin Concent 34 g/dL (31-37) Red Cell Distribution Width 13.7 % (11.5-14.5) Platelet Count 241 x10^3/uL (140-400) Neutrophils (%) (Auto) 82 % (31-73) Lymphocytes (%) (Auto) 11 % (24-48) Monocytes (%) (Auto) 7 % (0-9) Eosinophils (%) (Auto) 0 % (0-3) Basophils (%) (Auto) 0 % (0-3) Neutrophils # (Auto) 11.4 x10^3uL (1.8-7.7) Lymphocytes # (Auto) 1.5 x10^3/uL (1.0-4.8) Monocytes # (Auto) 1.0 x10^3/uL (0.0-1.1) Eosinophils # (Auto) 0.0 x10^3/uL (0.0-0.7) Basophils # (Auto) 0.0 x10^3/uL (0.0-0.2) Sodium Level 139 mmol/L (136-145) Potassium Level 3.6 mmol/L (3.5-5.1) Chloride Level 102 mmol/L (98-107) Carbon Dioxide Level 26 mmol/L (21-32) Anion Gap 11 (6-14) Blood Urea Nitrogen 7 mg/dL (8-26) Creatinine 1.0 mg/dL (0.7-1.3) Estimated GFR (Cockcroft-Gault) 100.7 Glucose Level 107 mg/dL (70-99) Calcium Level 8.9 mg/dL (8.5-10.1) Review of Systems Review of Systems no nausea co weak Assessment and Plan Assessmemt and Plan Problems Medical Problems: (1) Abdominal pain Status: Acute (2) Nausea & vomiting Status: Acute Probable cyclic vomiting syndrome Drug use ( prior cocain and Marajuana) pancreatitis, GERD Plan IV fluids Zofran GI consult Recheck labs Home meds Problems: Comment Review of Relevant I have reviewed the following items janis (where applicable) has been applied. Labs Laboratory Tests Test 08/19/16 09:14 08/20/16 03:55 White Blood Count 13.4 x10^3/uL (4.0-11.0) 14.0 x10^3/uL (4.0-11.0) Red Blood Count 5.32 x10^6/uL (4.30-5.70) 5.19 x10^6/uL (4.30-5.70) Hemoglobin 16.1 g/dL (13.0-17.5) 15.3 g/dL (13.0-17.5) Hematocrit 45.3 % (39.0-53.0) 44.9 % (39.0-53.0) Mean Corpuscular Volume 85 fL (79-100) 86 fL (79-100) Mean Corpuscular Hemoglobin 30 pg (25-35) 30 pg (25-35) Mean Corpuscular Hemoglobin Concent 36 g/dL (31-37) 34 g/dL (31-37) Red Cell Distribution Width 13.9 % (11.5-14.5) 13.7 % (11.5-14.5) Platelet Count 262 x10^3/uL (140-400) 241 x10^3/uL (140-400) Neutrophils (%) (Auto) 74 % (31-73) 82 % (31-73) Lymphocytes (%) (Auto) 17 % (24-48) 11 % (24-48) Monocytes (%) (Auto) 6 % (0-9) 7 % (0-9) Eosinophils (%) (Auto) 3 % (0-3) 0 % (0-3) Basophils (%) (Auto) 1 % (0-3) 0 % (0-3) Neutrophils # (Auto) 9.9 x10^3uL (1.8-7.7) 11.4 x10^3uL (1.8-7.7) Lymphocytes # (Auto) 2.3 x10^3/uL (1.0-4.8) 1.5 x10^3/uL (1.0-4.8) Monocytes # (Auto) 0.8 x10^3/uL (0.0-1.1) 1.0 x10^3/uL (0.0-1.1) Eosinophils # (Auto) 0.3 x10^3/uL (0.0-0.7) 0.0 x10^3/uL (0.0-0.7) Basophils # (Auto) 0.1 x10^3/uL (0.0-0.2) 0.0 x10^3/uL (0.0-0.2) Sodium Level 135 mmol/L (136-145) 139 mmol/L (136-145) Potassium Level 4.2 mmol/L (3.5-5.1) 3.6 mmol/L (3.5-5.1) Chloride Level 102 mmol/L (98-107) 102 mmol/L (98-107) Carbon Dioxide Level 22 mmol/L (21-32) 26 mmol/L (21-32) Anion Gap 11 (6-14) 11 (6-14) Blood Urea Nitrogen 8 mg/dL (8-26) 7 mg/dL (8-26) Creatinine 1.2 mg/dL (0.7-1.3) 1.0 mg/dL (0.7-1.3) Estimated GFR (Cockcroft-Gault) 81.6 100.7 BUN/Creatinine Ratio 7 (6-20) Glucose Level 123 mg/dL (70-99) 107 mg/dL (70-99) Calcium Level 9.3 mg/dL (8.5-10.1) 8.9 mg/dL (8.5-10.1) Total Bilirubin 0.9 mg/dL (0.2-1.0) Aspartate Amino Transf (AST/SGOT) 38 U/L (15-37) Alanine Aminotransferase (ALT/SGPT) 30 U/L (16-63) Alkaline Phosphatase 119 U/L (46-116) Total Protein 8.0 g/dL (6.4-8.2) Albumin 3.6 g/dL (3.4-5.0) Albumin/Globulin Ratio 0.8 (1.0-1.7) Amylase Level 85 U/L (25-115) Lipase 204 U/L (73-393) Ethyl Alcohol Level < 10 mg/dL (0-10) Laboratory Tests Test 08/20/16 03:55 White Blood Count 14.0 x10^3/uL (4.0-11.0) Red Blood Count 5.19 x10^6/uL (4.30-5.70) Hemoglobin 15.3 g/dL (13.0-17.5) Hematocrit 44.9 % (39.0-53.0) Mean Corpuscular Volume 86 fL (79-100) Mean Corpuscular Hemoglobin 30 pg (25-35) Mean Corpuscular Hemoglobin Concent 34 g/dL (31-37) Red Cell Distribution Width 13.7 % (11.5-14.5) Platelet Count 241 x10^3/uL (140-400) Neutrophils (%) (Auto) 82 % (31-73) Lymphocytes (%) (Auto) 11 % (24-48) Monocytes (%) (Auto) 7 % (0-9) Eosinophils (%) (Auto) 0 % (0-3) Basophils (%) (Auto) 0 % (0-3) Neutrophils # (Auto) 11.4 x10^3uL (1.8-7.7) Lymphocytes # (Auto) 1.5 x10^3/uL (1.0-4.8) Monocytes # (Auto) 1.0 x10^3/uL (0.0-1.1) Eosinophils # (Auto) 0.0 x10^3/uL (0.0-0.7) Basophils # (Auto) 0.0 x10^3/uL (0.0-0.2) Sodium Level 139 mmol/L (136-145) Potassium Level 3.6 mmol/L (3.5-5.1) Chloride Level 102 mmol/L (98-107) Carbon Dioxide Level 26 mmol/L (21-32) Anion Gap 11 (6-14) Blood Urea Nitrogen 7 mg/dL (8-26) Creatinine 1.0 mg/dL (0.7-1.3) Estimated GFR (Cockcroft-Gault) 100.7 Glucose Level 107 mg/dL (70-99) Calcium Level 8.9 mg/dL (8.5-10.1) Medications Current Medications Ondansetron HCl (Zofran) 4 mg 1X ONCE IV Last administered on 08/19/16 09:21; Start 08/19/16 at 09:15; Stop 08/19/16 at 09:16; Status DC Promethazine HCl (Phenergan Im) 25 mg 1X ONCE IM Last administered on 09:21; Start 08/19/16 at 09:15; Stop 08/19/16 at 09:16; Status DC Sodium Chloride 1,000 ml @ 1,000 mls/hr 1X ONCE IV Last administered on 09:22; Start 08/19/16 at 09:15; Stop 08/19/16 at 10:14; Status DC Fentanyl Citrate (Fentanyl 2ml Vial) 50 mcg PRN Q15MIN PRN IV PAIN GREATER THAN 3/10 Last administered on 08/19/16 12:20; Start 08/19/16 at 09:15; Stop 08/19 at 19:27; Status DC Iohexol (Omnipaque 300 Mg/ml) 75 ml 1X ONCE IV Last administered on 08/19/16 10:38; Start 08/19/16 at 09:45; Stop 08/19/16 at 09:46; Status DC Info (Do NOT chart on this entry -- for MONITORING) 1 each PRN DAILY PRN MC SEE COMMENTS; Start 08/19/16 at 10:00; Stop 08/21/16 at 09:59 Haloperidol Lactate (Haldol) 2 mg 1X ONCE IVP Last administered on 08/19/16 10 :14; Start 08/19/16 at 10:15; Stop 08/19/16 at 10:16; Status DC Ondansetron HCl (Zofran) 4 mg PRN Q8HRS PRN IV NAUSEA/VOMITING Last administered on 08/19/16 13:46; Start 08/19/16 at 12:00; Stop 08/19/16 at 19:27; Status DC Fentanyl Citrate (Fentanyl 2ml Vial) 50 mcg PRN Q2HR PRN IV PAIN Last administered on 08/19/16 14:50; Start 08/19/16 at 12:00; Stop 08/19/16 at 19:27; Status DC Sodium Chloride 1,000 ml @ 125 mls/hr Q8H IV Last administered on 08/20/16 03: 51; Start 08/19/16 at 13:00; Stop 08/20/16 at 12:59; Status DC Dicyclomine HCl (Bentyl) 10 mg 1X ONCE IM Last administered on 08/19/16 13:09 ; Start 08/19/16 at 12:45; Stop 08/19/16 at 12:46; Status DC Morphine Sulfate 4 mg 1X ONCE IV Last administered on 08/19/16 16:08; Start at 15:45; Stop 08/19/16 at 15:46; Status DC Prochlorperazine Edisylate (Compazine) 10 mg 1X ONCE IV Last administered on 16:08; Start 08/19/16 at 15:45; Stop 08/19/16 at 15:46; Status DC Fentanyl Citrate (Fentanyl 2ml Vial) 25 mcg PRN Q2HR PRN IV PAIN Last administered on 08/20/16 22:23; Start 08/19/16 at 19:30; Stop 08/20/16 at 22:37; Status DC Ondansetron HCl (Zofran) 8 mg PRN Q8HRS PRN IV NAUSEA/VOMITING (1st Choice) Last administered on 08/20/16 17:14; Start 08/19/16 at 19:30 Prochlorperazine Edisylate (Compazine) 10 mg PRN Q8HRS PRN IV NAUSEA/VOMITING Last administered on 08/20/16 20:49; Start 08/19/16 at 19:30 Sucralfate (Carafate) 1 gm QIDACHS PEG ; Start 08/19/16 at 21:00; Stop 08/19/16 at 21:40; Status DC Famotidine (Pepcid) 20 mg BID IVP Last administered on 08/20/16 08:23; Start at 21:00; Stop 08/20/16 at 14:44; Status DC Pantoprazole Sodium (Protonix) 40 mg DAILYAC PO Last administered on 08/20/16 08:22; Start 08/20/16 at 07:30 Sucralfate (Carafate) 1 gm QIDACHS PO Last administered on 08/20/16 20:53; Start 08/19/16 at 22:00 Famotidine (Pepcid) 20 mg BID PO Last administered on 08/20/16 20:53; Start 08/20/16 at 21:00 Sodium Chloride 1,000 ml @ 125 mls/hr Q8H IV Last administered on 08/20/16 22: 38; Start 08/20/16 at 15:15 Morphine Sulfate 2 mg PRN Q2HR PRN IV SEVERE PAIN; Start 08/20/16 at 22:45 Active Scripts Active Reported No Known Medications Prior To Admisstion (Info) Each 1 Each Vitals/I & O Vital Sign - Last 24 Hours 08/19/16 08/19/16 08/20/16 08/20/16 23:00 23:08 02:37 03:53 Temp 98.5 98.8 98.5 98.8 Pulse 94 80 Resp 19 20 16 20 B/P (MAP) 150/97 (114) 166/99 (121) Pulse Ox 94 100 O2 Delivery Room Air Room Air Room Air Room Air 08/20/16 08/20/16 08/20/16 08/20/16 05:40 07:00 07:50 08:23 Temp 98.9 98.9 Pulse 90 Resp 20 17 B/P (MAP) 116/77 (90) Pulse Ox 97 O2 Delivery Room Air Room Air Room Air Room Air 08/20/16 08/20/16 08/20/16 08/20/16 10:49 13:00 14:59 15:09 Temp 100.8 98.5 100.8 98.5 Pulse 88 76 Resp 18 18 B/P (MAP) 129/78 (95) 158/89 (112) Pulse Ox 98 95 O2 Delivery Room Air Room Air Room Air Room Air 08/20/16 08/20/16 08/20/16 08/20/16 17:14 19:00 19:42 20:49 Temp 98.3 98.3 Pulse 85 Resp 20 26 18 B/P (MAP) 157/93 (114) Pulse Ox 96 O2 Delivery Room Air Room Air Room Air Room Air 08/20/16 08/20/16 21:31 22:23 Resp 18 19 O2 Delivery Room Air Room Air Intake and Output 08/19/16 08/19/16 08/20/16 15:00 23:00 07:00 Intake Total 1000 ml 30 ml 0 ml Output Total 520 ml 625 ml Balance 1000 ml -490 ml -625 ml JALEN KEN III DO Aug 20, 2016 22:50
[2016-08-20] MEDS: MORPHINE SULFATE 2 MG/ML DISP.SYRIN. IV PRN (22:51)
[2016-08-20 23:00] VITALS: BP 151/98
[2016-08-21] MEDS: MORPHINE SULFATE 2 MG/ML DISP.SYRIN. IV PRN ×5 (01:13→19:44)
[2016-08-21] MEDS: ONDANSETRON PF 4 MG/2 ML VIAL. IV PRN ×2 (01:13→20:48)
[2016-08-21] MEDS: IV NORMAL SALINE 1000ML BAG 1,000 ML IV SCH ×3 (04:30→19:44)
[2016-08-21] MEDS: PROCHLORPERAZINE 10 MG/2 ML VIAL. IV PRN ×3 (04:31→23:08)
[2016-08-21 07:46] VITALS: BP 128/78
[2016-08-21] MEDS: FAMOTIDINE 20 MG TABLET. PO SCH (08:58)
[2016-08-21] MEDS: PANTOPRAZOLE 40 MG TABLET.DR. PO SCH (08:58)
[2016-08-21] MEDS: SUCRALFATE 1 GM/10 ML ORAL.SUSP. PO SCH ×4 (08:58→23:07)
[2016-08-21 10:16] VITALS: BP 137/74
--- NOTE | 2016-08-21 12:05 | PDOC ---
PROGRESS NOTES Chief Complaint Chief Complaint Probable cyclic vomiting syndrome Drug use ( prior cocain and Marajuana) pancreatitis, GERD History of Present Illness History of Present Illness Resting with NAD on left side [place] Still nauseated VSS DW RN labs noted notes reviewed Vitals Vitals Vital Signs Date Time Temp Pulse Resp B/P (MAP) Pulse Ox O2 Delivery O2 Flow Rate FiO2 08/21/16 10:16 100.6 88 19 137/74 (95) 96 Room Air 100.6 Physical Exam General: Alert, Oriented X3, No acute distress Heart: Regular rate, Normal S1, Normal S2, No murmurs Lungs: Clear Abdomen: Normal bowel sounds, Soft, Other (tender) Extremities: No clubbing, No cyanosis Skin: No rashes, No breakdown Review of Systems Review of Systems co nausea co weakness Assessment and Plan Assessmemt and Plan Problems Medical Problems: (1) Abdominal pain Status: Acute (2) Nausea & vomiting Status: Acute Probable cyclic vomiting syndrome Drug use ( prior cocain and Marajuana) pancreatitis, GERD Plan Zofran IV fluids Home meds Labs Appreciate subspecialist input Problems: Comment Review of Relevant I have reviewed the following items janis (where applicable) has been applied. Labs Laboratory Tests Test 08/20/16 03:55 White Blood Count 14.0 x10^3/uL (4.0-11.0) Red Blood Count 5.19 x10^6/uL (4.30-5.70) Hemoglobin 15.3 g/dL (13.0-17.5) Hematocrit 44.9 % (39.0-53.0) Mean Corpuscular Volume 86 fL (79-100) Mean Corpuscular Hemoglobin 30 pg (25-35) Mean Corpuscular Hemoglobin Concent 34 g/dL (31-37) Red Cell Distribution Width 13.7 % (11.5-14.5) Platelet Count 241 x10^3/uL (140-400) Neutrophils (%) (Auto) 82 % (31-73) Lymphocytes (%) (Auto) 11 % (24-48) Monocytes (%) (Auto) 7 % (0-9) Eosinophils (%) (Auto) 0 % (0-3) Basophils (%) (Auto) 0 % (0-3) Neutrophils # (Auto) 11.4 x10^3uL (1.8-7.7) Lymphocytes # (Auto) 1.5 x10^3/uL (1.0-4.8) Monocytes # (Auto) 1.0 x10^3/uL (0.0-1.1) Eosinophils # (Auto) 0.0 x10^3/uL (0.0-0.7) Basophils # (Auto) 0.0 x10^3/uL (0.0-0.2) Sodium Level 139 mmol/L (136-145) Potassium Level 3.6 mmol/L (3.5-5.1) Chloride Level 102 mmol/L (98-107) Carbon Dioxide Level 26 mmol/L (21-32) Anion Gap 11 (6-14) Blood Urea Nitrogen 7 mg/dL (8-26) Creatinine 1.0 mg/dL (0.7-1.3) Estimated GFR (Cockcroft-Gault) 100.7 Glucose Level 107 mg/dL (70-99) Calcium Level 8.9 mg/dL (8.5-10.1) Medications Current Medications Ondansetron HCl (Zofran) 4 mg 1X ONCE IV Last administered on 08/19/16 09:21; Start 08/19/16 at 09:15; Stop 08/19/16 at 09:16; Status DC Promethazine HCl (Phenergan Im) 25 mg 1X ONCE IM Last administered on 09:21; Start 08/19/16 at 09:15; Stop 08/19/16 at 09:16; Status DC Sodium Chloride 1,000 ml @ 1,000 mls/hr 1X ONCE IV Last administered on 09:22; Start 08/19/16 at 09:15; Stop 08/19/16 at 10:14; Status DC Fentanyl Citrate (Fentanyl 2ml Vial) 50 mcg PRN Q15MIN PRN IV PAIN GREATER THAN 3/10 Last administered on 08/19/16 12:20; Start 08/19/16 at 09:15; Stop 08/19 at 19:27; Status DC Iohexol (Omnipaque 300 Mg/ml) 75 ml 1X ONCE IV Last administered on 08/19/16 10:38; Start 08/19/16 at 09:45; Stop 08/19/16 at 09:46; Status DC Info (Do NOT chart on this entry -- for MONITORING) 1 each PRN DAILY PRN MC SEE COMMENTS; Start 08/19/16 at 10:00; Stop 08/21/16 at 09:59; Status DC Haloperidol Lactate (Haldol) 2 mg 1X ONCE IVP Last administered on 08/19/16 10 :14; Start 08/19/16 at 10:15; Stop 08/19/16 at 10:16; Status DC Ondansetron HCl (Zofran) 4 mg PRN Q8HRS PRN IV NAUSEA/VOMITING Last administered on 08/19/16 13:46; Start 08/19/16 at 12:00; Stop 08/19/16 at 19:27; Status DC Fentanyl Citrate (Fentanyl 2ml Vial) 50 mcg PRN Q2HR PRN IV PAIN Last administered on 08/19/16 14:50; Start 08/19/16 at 12:00; Stop 08/19/16 at 19:27; Status DC Sodium Chloride 1,000 ml @ 125 mls/hr Q8H IV Last administered on 08/20/16 03: 51; Start 08/19/16 at 13:00; Stop 08/20/16 at 12:59; Status DC Dicyclomine HCl (Bentyl) 10 mg 1X ONCE IM Last administered on 08/19/16 13:09 ; Start 08/19/16 at 12:45; Stop 08/19/16 at 12:46; Status DC Morphine Sulfate 4 mg 1X ONCE IV Last administered on 08/19/16 16:08; Start at 15:45; Stop 08/19/16 at 15:46; Status DC Prochlorperazine Edisylate (Compazine) 10 mg 1X ONCE IV Last administered on 16:08; Start 08/19/16 at 15:45; Stop 08/19/16 at 15:46; Status DC Fentanyl Citrate (Fentanyl 2ml Vial) 25 mcg PRN Q2HR PRN IV PAIN Last administered on 08/20/16 22:23; Start 08/19/16 at 19:30; Stop 08/20/16 at 22:37; Status DC Ondansetron HCl (Zofran) 8 mg PRN Q8HRS PRN IV NAUSEA/VOMITING (1st Choice) Last administered on 08/21/16 01:13; Start 08/19/16 at 19:30 Prochlorperazine Edisylate (Compazine) 10 mg PRN Q8HRS PRN IV NAUSEA/VOMITING Last administered on 08/21/16 04:31; Start 08/19/16 at 19:30 Sucralfate (Carafate) 1 gm QIDACHS PEG ; Start 08/19/16 at 21:00; Stop 08/19/16 at 21:40; Status DC Famotidine (Pepcid) 20 mg BID IVP Last administered on 08/20/16 08:23; Start at 21:00; Stop 08/20/16 at 14:44; Status DC Pantoprazole Sodium (Protonix) 40 mg DAILYAC PO Last administered on 08/21/16 08:58; Start 08/20/16 at 07:30 Sucralfate (Carafate) 1 gm QIDACHS PO Last administered on 08/21/16 10:50; Start 08/19/16 at 22:00 Famotidine (Pepcid) 20 mg BID PO Last administered on 08/21/16 08:58; Start 08/20/16 at 21:00 Sodium Chloride 1,000 ml @ 125 mls/hr Q8H IV Last administered on 08/21/16 04: 30; Start 08/20/16 at 15:15 Morphine Sulfate 2 mg PRN Q2HR PRN IV SEVERE PAIN Last administered on 10:49; Start 08/20/16 at 22:45 Active Scripts Active Reported No Known Medications Prior To Admisstion (Info) Each 1 Each Vitals/I & O Vital Sign - Last 24 Hours 08/20/16 08/20/16 08/20/16 08/20/16 13:00 14:59 15:09 17:14 Temp 98.5 98.5 Pulse 76 Resp 18 B/P (MAP) 158/89 (112) Pulse Ox 95 O2 Delivery Room Air Room Air Room Air Room Air 08/20/16 08/20/16 08/20/16 08/20/16 19:00 19:42 20:49 21:31 Temp 98.3 98.3 Pulse 85 Resp 20 26 18 18 B/P (MAP) 157/93 (114) Pulse Ox 96 O2 Delivery Room Air Room Air Room Air Room Air 08/20/16 08/20/16 08/20/16 08/21/16 22:23 22:51 23:00 01:13 Temp 98.6 98.6 Pulse 74 Resp 19 25 20 18 B/P (MAP) 151/98 (115) Pulse Ox 97 O2 Delivery Room Air Room Air Room Air Room Air 08/21/16 08/21/16 08/21/16 08/21/16 04:33 05:10 07:46 08:00 Temp 99.1 99.1 Pulse 88 Resp 18 17 18 B/P (MAP) 128/78 (95) Pulse Ox 95 O2 Delivery Room Air Room Air Room Air Room Air 08/21/16 10:16 Temp 100.6 100.6 Pulse 88 Resp 19 B/P (MAP) 137/74 (95) Pulse Ox 96 O2 Delivery Room Air Intake and Output 08/20/16 08/20/16 08/21/16 15:00 23:00 07:00 Intake Total 0 ml 1530 ml Output Total 325 ml Balance -325 ml 0 ml 1530 ml JALEN KEN III DO Aug 21, 2016 12:05
--- NOTE | 2016-08-21 13:27 | PDOC ---
Subjective: Subjective: Feeling "a lot" better than yesterday but then details still difficulty w/ trying clears. Not interested in advancing diet. Took a few sips, then feels uneasy. No pain currently. No diarrhea. Objective: Objective: Per RN - c/o pain earlier, not having any stools - ?do we need isolation/check C Diff Vital Signs: Vital Signs Date Time Temp Pulse Resp B/P (MAP) Pulse Ox O2 Delivery O2 Flow Rate FiO2 08/21/16 10:16 100.6 88 19 137/74 (95) 96 Room Air 100.6 PE: GEN: NAD LUNGS: CTAB HEART: RRR ABD: NABS, S/ND/NT NEURO/PSYCH: A & O 3 A/P: Recurrent abd pain, n/v - better -likely cannabinoid syndrome/CVS -had a little more reflux recently, on PPI here -h/o alcohol-induced pancreatitis Fever, leukocytosis -- No plans for EGD at this point. Abstain from marijuana. Continue PPI - change to PO. ADAT. Other per Dr. Marino. MIKE ANDRADE Aug 21, 2016 13:27
[2016-08-21 14:46] VITALS: BP 138/96
[2016-08-21 19:59] VITALS: BP 177/118
[2016-08-21 20:53] VITALS: BP 168/91
[2016-08-21 23:47] VITALS: BP 168/100
[2016-08-22] MEDS: diphenhydrAMINE HCL 25 MG CAPSULE PO PRN ×2 (01:00→22:42)
[2016-08-22] MEDS: MORPHINE SULFATE 2 MG/ML DISP.SYRIN. IV PRN ×3 (01:00→10:34)
[2016-08-22 03:59] VITALS: BP 146/91
[2016-08-22] MEDS: IV NORMAL SALINE 1000ML BAG 1,000 ML IV SCH ×3 (04:00→21:55)
[2016-08-22 07:00] VITALS: BP 154/80
[2016-08-22] MEDS: PANTOPRAZOLE 40 MG TABLET.DR. PO SCH (08:18)
[2016-08-22] MEDS: SUCRALFATE 1 GM/10 ML ORAL.SUSP. PO SCH ×4 (08:18→20:06)
[2016-08-22] MEDS: ONDANSETRON PF 4 MG/2 ML VIAL. IV PRN ×2 (10:34→20:07)
[2016-08-22 11:00] VITALS: BP 144/96
--- NOTE | 2016-08-22 13:27 | PDOC ---
PROGRESS NOTES Chief Complaint Chief Complaint N/V Abd pain ASSESSMENT AND PLAN: 1. N/V: suspected cyclic vomiting syndrome (THC induced). resolving. antiemetics PRN 2. Abd pain: gastritis, poss Jacy-Trammell tears. PPI, carafate. still rated mod-severe by pt, requiring narcotics. GI service following. 3. Hx pancreatitis (?EtOH induced): normal lipase at admit 4. Constipation: narcotic induced. miralax daily 5. Prophylaxis: lovenox History of Present Illness History of Present Illness curled up in position, c/o abd pain. can move easily onto his back and sit up. nausea controlled Vitals Vitals Vital Signs Date Time Temp Pulse Resp B/P (MAP) Pulse Ox O2 Delivery O2 Flow Rate FiO2 08/22/16 11:04 20 93 Room Air 08/22/16 07:00 98.2 84 154/80 (104) 98.2 Physical Exam General: Alert, Oriented X3, Cooperative, No acute distress Heart: Regular rate, No murmurs Lungs: Clear Abdomen: Normal bowel sounds, Soft, Other (TTP betsey in epigastrium) Extremities: No clubbing, No cyanosis Skin: No rashes, No breakdown Comment Review of Relevant I have reviewed the following items janis (where applicable) has been applied. Medications Current Medications Ondansetron HCl (Zofran) 4 mg 1X ONCE IV Last administered on 08/19/16 09:21; Start 08/19/16 at 09:15; Stop 08/19/16 at 09:16; Status DC Promethazine HCl (Phenergan Im) 25 mg 1X ONCE IM Last administered on 09:21; Start 08/19/16 at 09:15; Stop 08/19/16 at 09:16; Status DC Sodium Chloride 1,000 ml @ 1,000 mls/hr 1X ONCE IV Last administered on 09:22; Start 08/19/16 at 09:15; Stop 08/19/16 at 10:14; Status DC Fentanyl Citrate (Fentanyl 2ml Vial) 50 mcg PRN Q15MIN PRN IV PAIN GREATER THAN 3/10 Last administered on 08/19/16 12:20; Start 08/19/16 at 09:15; Stop 08/19 at 19:27; Status DC Iohexol (Omnipaque 300 Mg/ml) 75 ml 1X ONCE IV Last administered on 08/19/16 10:38; Start 08/19/16 at 09:45; Stop 08/19/16 at 09:46; Status DC Info (Do NOT chart on this entry -- for MONITORING) 1 each PRN DAILY PRN MC SEE COMMENTS; Start 08/19/16 at 10:00; Stop 08/21/16 at 09:59; Status DC Haloperidol Lactate (Haldol) 2 mg 1X ONCE IVP Last administered on 08/19/16 10 :14; Start 08/19/16 at 10:15; Stop 08/19/16 at 10:16; Status DC Ondansetron HCl (Zofran) 4 mg PRN Q8HRS PRN IV NAUSEA/VOMITING Last administered on 08/19/16 13:46; Start 08/19/16 at 12:00; Stop 08/19/16 at 19:27; Status DC Fentanyl Citrate (Fentanyl 2ml Vial) 50 mcg PRN Q2HR PRN IV PAIN Last administered on 08/19/16 14:50; Start 08/19/16 at 12:00; Stop 08/19/16 at 19:27; Status DC Sodium Chloride 1,000 ml @ 125 mls/hr Q8H IV Last administered on 08/20/16 03: 51; Start 08/19/16 at 13:00; Stop 08/20/16 at 12:59; Status DC Dicyclomine HCl (Bentyl) 10 mg 1X ONCE IM Last administered on 08/19/16 13:09 ; Start 08/19/16 at 12:45; Stop 08/19/16 at 12:46; Status DC Morphine Sulfate 4 mg 1X ONCE IV Last administered on 08/19/16 16:08; Start at 15:45; Stop 08/19/16 at 15:46; Status DC Prochlorperazine Edisylate (Compazine) 10 mg 1X ONCE IV Last administered on 16:08; Start 08/19/16 at 15:45; Stop 08/19/16 at 15:46; Status DC Fentanyl Citrate (Fentanyl 2ml Vial) 25 mcg PRN Q2HR PRN IV PAIN Last administered on 08/20/16 22:23; Start 08/19/16 at 19:30; Stop 08/20/16 at 22:37; Status DC Ondansetron HCl (Zofran) 8 mg PRN Q8HRS PRN IV NAUSEA/VOMITING (1st Choice) Last administered on 08/22/16 10:34; Start 08/19/16 at 19:30 Prochlorperazine Edisylate (Compazine) 10 mg PRN Q8HRS PRN IV NAUSEA/VOMITING Last administered on 08/21/16 23:08; Start 08/19/16 at 19:30 Sucralfate (Carafate) 1 gm QIDACHS PEG ; Start 08/19/16 at 21:00; Stop 08/19/16 at 21:40; Status DC Famotidine (Pepcid) 20 mg BID IVP Last administered on 08/20/16 08:23; Start at 21:00; Stop 08/20/16 at 14:44; Status DC Pantoprazole Sodium (Protonix) 40 mg DAILYAC PO Last administered on 08/21/16 08:58; Start 08/20/16 at 07:30; Stop 08/21/16 at 13:26; Status DC Sucralfate (Carafate) 1 gm QIDACHS PO Last administered on 08/22/16 11:37; Start 08/19/16 at 22:00 Famotidine (Pepcid) 20 mg BID PO Last administered on 08/21/16 08:58; Start 08/20/16 at 21:00; Stop 08/21/16 at 13:26; Status DC Sodium Chloride 1,000 ml @ 125 mls/hr Q8H IV Last administered on 08/22/16 12 :16; Start 08/20/16 at 15:15 Morphine Sulfate 2 mg PRN Q2HR PRN IV SEVERE PAIN Last administered on 10:34; Start 08/20/16 at 22:45 Pantoprazole Sodium (Protonix) 40 mg DAILYAC PO Last administered on 08/22/16 08:18; Start 08/22/16 at 07:30 Diphenhydramine HCl (Benadryl) 50 mg PRN QHS PRN PO INSOMNIA Last administered on 6/10/17at 01:00; Start 08/22/16 at 00:45 Active Scripts Active Reported No Known Medications Prior To Admisstion (Info) Each 1 Each Vitals/I & O Vital Sign - Last 24 Hours 08/21/16 08/21/16 08/21/16 08/21/16 14:46 19:40 19:44 19:59 Temp 98.0 99.5 98.0 99.5 Pulse 87 81 Resp 18 20 24 B/P (MAP) 138/96 (110) 177/118 (137) Pulse Ox 99 100 O2 Delivery Room Air Room Air Room Air Room Air 08/21/16 08/21/16 08/22/16 08/22/16 20:53 23:47 01:00 03:59 Temp 99.4 99.2 99.4 99.2 Pulse 73 79 90 Resp 20 20 20 20 B/P (MAP) 168/91 (116) 168/100 (122) 146/91 (109) Pulse Ox 97 98 O2 Delivery Room Air Room Air Room Air Room Air 08/22/16 08/22/16 08/22/16 08/22/16 04:06 07:00 08:00 10:34 Temp 98.2 98.2 Pulse 84 Resp 20 22 20 B/P (MAP) 154/80 (104) Pulse Ox 98 92 O2 Delivery Room Air Room Air Room Air Room Air 08/22/16 11:04 Resp 20 Pulse Ox 93 O2 Delivery Room Air Intake and Output 08/21/16 08/21/16 08/22/16 15:00 23:00 07:00 Intake Total 450 ml 1720 ml 1240 ml Output Total 1000 ml 500 ml Balance -550 ml 1720 ml 740 ml DAWSON COTTON MD Aug 22, 2016 13:27
[2016-08-22] MEDS: oxyCODONE IR 5 MG TABLET PO PRN ×2 (13:50→20:06)
[2016-08-22] MEDS: POLYETHYLENE GLYCOL 3350 17 GM PACKET. PO SCH (13:50)
[2016-08-22] MEDS: ENOXAPARIN 40 MG/0.4 ML SYRINGE. SQ SCH (13:51)
[2016-08-22 15:00] VITALS: BP 115/70
[2016-08-22] MEDS: PROCHLORPERAZINE 10 MG/2 ML VIAL. IV PRN (16:43)
[2016-08-22 19:59] VITALS: BP 149/99
[2016-08-22 23:55] VITALS: BP 156/96
[2016-08-23] MEDS: PROCHLORPERAZINE 10 MG/2 ML VIAL. IV PRN (01:05)
[2016-08-23 03:59] VITALS: BP 144/91
[2016-08-23] MEDS: oxyCODONE IR 5 MG TABLET PO PRN ×2 (04:44→12:18)
[2016-08-23] MEDS: IV NORMAL SALINE 1000ML BAG 1,000 ML IV SCH ×3 (06:00→23:15)
[2016-08-23 06:10] LABS: BASO % 0 % (0-3); EOS % 2 % (0-3); HEMATOCRIT 44.2 % (39.0-53.0); HEMOGLOBIN 15.7 g/dL (13.0-17.5); LYMPH # 2.1 x10^3/uL (1.0-4.8); LYMPH % 17 % (24-48); MEAN CORPUSCULAR HEMOGLOBIN 30 pg (25-35); MEAN CORPUSCULAR HGB CONC 36 g/dL (31-37); MEAN CORPUSCULAR VOLUME 85 fL (79-100); MONO % 11 % (0-9); NEUT % 69 % (31-73); PLATELET COUNT 248 x10^3/uL (140-400); RED BLOOD COUNT 5.23 x10^6/uL (4.30-5.70); RED CELL DISTRIBUTION WIDTH 13.2 % (11.5-14.5)
[2016-08-23 06:17] LABS: ALBUMIN 3.6 g/dL (3.4-5.0); CALCIUM 8.9 mg/dL (8.5-10.1); GFR 100.7; POTASSIUM 3.7 mmol/L (3.5-5.1); TOTAL BILIRUBIN 2.3 mg/dL (0.2-1.0); TOTAL PROTEIN 7.3 g/dL (6.4-8.2)
[2016-08-23 07:00] VITALS: BP 153/103
[2016-08-23] MEDS: POLYETHYLENE GLYCOL 3350 17 GM PACKET. PO SCH (07:43)
[2016-08-23] MEDS: PANTOPRAZOLE 40 MG TABLET.DR. PO SCH (07:43)
[2016-08-23] MEDS: SUCRALFATE 1 GM/10 ML ORAL.SUSP. PO SCH ×4 (07:43→20:54)
[2016-08-23 10:58] VITALS: BP 150/101
[2016-08-23 15:03] VITALS: BP 135/101
[2016-08-23] MEDS: ENOXAPARIN 40 MG/0.4 ML SYRINGE. SQ SCH (15:51)
[2016-08-23 19:30] VITALS: BP 138/96
[2016-08-23 23:00] VITALS: BP 145/90
[2016-08-23] MEDS: diphenhydrAMINE HCL 25 MG CAPSULE PO PRN (23:23)
[2016-08-23] MEDS: ONDANSETRON PF 4 MG/2 ML VIAL. IV PRN (23:24)
[2016-08-24 03:13] VITALS: BP 134/92
[2016-08-24 07:00] VITALS: BP 131/85
[2016-08-24] MEDS: IV NORMAL SALINE 1000ML BAG 1,000 ML IV SCH (07:15)
[2016-08-24] MEDS: POLYETHYLENE GLYCOL 3350 17 GM PACKET. PO SCH (08:57)
[2016-08-24] MEDS: PANTOPRAZOLE 40 MG TABLET.DR. PO SCH (08:58)
[2016-08-24] MEDS: SUCRALFATE 1 GM/10 ML ORAL.SUSP. PO SCH (08:58)
[2016-08-24 11:00] VITALS: BP 134/80
--- NOTE | 2016-08-24 11:10 | PDOC ---
Subjective: Subjective: Feels much better, no GI complaints. Objective: Objective: Per RN - DC today, tolerating PO, no pain. Vital Signs: Vital Signs Date Time Temp Pulse Resp B/P (MAP) Pulse Ox O2 Delivery O2 Flow Rate FiO2 08/24/16 08:00 Room Air 08/24/16 07:00 98.2 85 18 131/85 (100) 95 98.2 PE: GEN: NAD, dressed to leave ABD: NABS, S/ND/NT NEURO/PSYCH: A & O 3 A/P: Recurrent abd pain, n/v - resolved -suspect cannabinoid syndrome/CVS -on PPI for reflux here -h/o alcohol-induced pancreatitis -- DC plans noted, okay per GI. Avoid marijuana x 6 months, continue PPI. Follow-up PRN. MIKE ANDRADE Aug 24, 2016 11:10
--- NOTE | 2016-09-01 17:36 | PDOC3 ---
Discharge Summary Visit Information Date of Admission: Aug 19, 2016 Date of Discharge: Aug 24, 2016 Admitting Diagnosis: abdomen pain, nausea and vomiting Final Diagnosis Recurrent abd pain, n/v - Leukocytosis on admit, vital enteritis likely, low grade fever, tachycardia +SIRS syndrome on admit, no sepsis, improved over time Prior physician suspected cannabinoid syndrome , no tox screen performed to support this GERD, gastritis, -h/o alcohol-induced pancreatitis poss Jacy-Trammell tears. Constipation: narcotic induced Problems Medical Problems: (1) Abdominal pain Status: Acute (2) Nausea & vomiting Status: Acute Brief Hospital Course Allergies Allergies Coded Allergies Type Severity Reaction Last Updated Verified No Known Drug Allergies 05/07/15 No Brief Hospital Course Mr. Shafer is a 41 old male, admitted with acute abd pain and nausea and vomiting, second ER evaluation for same that week. Reports five year history of flares of n/v and abdominal pain, sometimes w/ diarrhea. IV fluid, symptom control, improved over days. THC abstinence recommended, he declined use to me at discharge GI consulted, Dr Olmstead followed, pt much improved, july f/u PRN pt felt well at DC, rita regular food, and had no nausea or pain Discharge Information Condition at Discharge: Improved Follow Up: Weeks Disposition/Orders: D/C to Home Miscellaneous Medications Info (No Known Medications Prior To Admisstion), 1 EACH , (Reported) Patient Instructions Patient Instructions cont PPI if pain time< 30 min JUICE DURAN MD Sep 01, 2016 17:36
== END 2016-08-24 12:46 | disposition home or self-care (01) | DRG 391 ==
LOC: ER 08:51 → 5 SOUTH 11:19
PROVIDERS: ADMIT Internal Medicine Hematology & Oncology; ATTEND Internal Medicine Hematology & Oncology
DX: A08.4 Viral intestinal infection, unspecified (principal); K22.6 Gastro-esophageal laceration-hemorrhage syndrome; R65.10 Systemic inflammatory response syndrome (SIRS) of non-infectious origin without acute organ dysfunction; G43.A0 Cyclical vomiting, in migraine, not intractable; K29.70 Gastritis, unspecified, without bleeding; T40.7X5A Adverse effect of cannabis (derivatives), initial encounter; F12.10 Cannabis abuse, uncomplicated; F17.210 Nicotine dependence, cigarettes, uncomplicated; K21.9 Gastro-esophageal reflux disease without esophagitis; K59.03 Drug induced constipation; T40.605A Adverse effect of unspecified narcotics, initial encounter
CPT/HCPCS: 36415; 74177; 80048; 80053; 82150; 83690; 85027; 96361; 96372; 96374; 96375; 96376; G0480; J0500; J0780; J1630; J1650; J2270; J2405; J2550; J3010; J7030; Q0163; Q9967; S0028; 99285-25

== ENCOUNTER 2020-09-13 12:58 | Emergency (ER) | payer SELFPAY ==
[~2020-09-13] VITALS: Ht 175.3 cm; Wt 81.0 kg
--- NOTE | 2020-09-13 13:13 | PHYS DOC ---
Past Medical History Past Medical History: Pancreatitis Past Surgical History: No Surgical History Smoking Status: Current Every Day Smoker Alcohol Use: Occasionally Drug Use: Marijuana General Adult HPI: HPI: Patient is a 45 year old male who presents with chronic nausea and vomiting and states he is never been diagnosed with anything in the past. He comes in by EMS with abdominal pain and epigastric area with nausea and vomiting that started he stated this morning. He did state that he went to [facility] and they gave him meclizine but it is not helping. Patient is rolling around and moaning in the bed. When looking in his life summary of labs it does show a history of cocaine and marijuana use. He denies any past medical history or surgeries. He is rating his pain a 10 out of 10. He denies dizziness, headache, chest pain, fever, diarrhea, constipation, cough, focal weakness, numbness or tingling. Review of Systems: Review of Systems: Constitutional: Denies fever or chills. [] Eyes: Denies change in visual acuity. [] HENT: Denies nasal congestion or sore throat. [] Respiratory: Denies cough or shortness of breath. [] Cardiovascular: Denies chest pain or edema. [] GI: + abdominal pain, +nausea, +vomiting, denies bloody stools or diarrhea. [] : Denies dysuria. [] Musculoskeletal: Denies back pain or joint pain. [] Integument: Denies rash. [] Neurologic: Denies headache, focal weakness or sensory changes. [] Endocrine: Denies polyuria or polydipsia. [] Lymphatic: Denies swollen glands. [] Psychiatric: Denies depression or anxiety. [] Heart Score: C/O Chest Pain: No Risk Factors: Risk Factors: DM, Current or recent (<one month) smoker, HTN, HLP, family history of CAD, obesity. Risk Scores: Score 0 - 3: 2.5% MACE over next 6 weeks - Discharge Home Score 4 - 6: 20.3% MACE over next 6 weeks - Admit for Clinical Observation Score 7 - 10: 72.7% MACE over next 6 weeks - Early Invasive Strategies Current Medications: Current Medications Medications (Trade) Dose Ordered Sig/Zhang Start Time Stop Time Status Last Admin Dose Admin Famotidine (Pepcid Vial) 20 mg 1X ONCE 09/13/20 13:15 09/13/20 13:16 Fentanyl Citrate (Fentanyl 2ml Vial) 50 mcg 1X ONCE 09/13/20 13:15 09/13/20 13:16 Ondansetron HCl (Zofran) 4 mg 1X ONCE 09/13/20 13:15 09/13/20 13:16 Sodium Chloride 1,000 ml @ 1,000 mls/hr Q1H 09/13/20 13:15 09/13/20 14:14 Allergies: Allergies: Allergies Coded Allergies Type Severity Reaction Last Updated Verified No Known Drug Allergies 05/07/15 No Physical Exam: PE: Constitutional: Well developed, well nourished, no acute distress, non-toxic appearance. [] HENT: Normocephalic, atraumatic, bilateral external ears normal, oropharynx moist, no oral exudates, nose normal. [] Eyes: PERRLA, EOMI, conjunctiva normal, no discharge. [] Neck: Normal range of motion, no tenderness, supple, no stridor. [] Cardiovascular:Heart rate regular rhythm, no murmur [] Lungs & Thorax: Bilateral breath sounds clear to auscultation [] Abdomen: Bowel sounds normal, soft, epigastric tenderness, no masses, no pulsatile masses. [] Skin: Warm, dry, no erythema, no rash. [] Back: No tenderness, no CVA tenderness. [] Extremities: No tenderness, no cyanosis, no clubbing, ROM intact, no edema. [] Neurologic: Alert and oriented X 3, normal motor function, normal sensory function, no focal deficits noted. [] Psychologic: Affect normal, judgement normal, mood normal. Anxious [] EKG: EK and read by Dr. Cedillo is sinus rhythm but no specific abnormalities. There is no STEMI. Radiology/Procedures: Radiology/Procedures: [] Impression: [facility] [address] [place] [address] IMAGING REPORT Signed PATIENT: JOSSELYN HOFFMAN ACCOUNT: [id number] : 1975 LOCATION: ER AGE: 45 SEX: M EXAM STATUS: REG ER ORD. PHYSICIAN: ROSEANN SHERIFF APRN REASON: vomiting PROCEDURE: PORTABLE CHEST 1V AP chest. HISTORY: Vomiting AP view was taken of the chest. There is no pneumothorax or pleural effusion. Lungs are free of infiltrates. Heart is normal in size. Patient has not taken a deep inspiration. IMPRESSION: 1. No acute infiltrates. Electronically signed by: Nakul Carr MD (09/13/2020 2:00 PM) [facility] DICTATED and SIGNED BY: NAKUL CARR MD DATE: 09/13/20 [id number] [facility] [address] [place] [address] IMAGING REPORT Signed PATIENT: JOSSELYN HOFFMAN ACCOUNT: [id number] : 1975 LOCATION: ER AGE: 45 SEX: M EXAM STATUS: REG ER ORD. PHYSICIAN: ROSEANN SHERIFF APRN REASON: vomiting PROCEDURE: CT ABD PELV W/ IV CONTRST ONLY CT abdomen pelvis with contrast. HISTORY: Vomiting CT abdomen pelvis was done using 75 mL Omnipaque 300 contrast. Comparison is made to study from August 2016. Lung bases are clear. There is no effusion. Liver is normal in appearance. There is no calcified gallstone. Spleen and adrenal glands are normal. Pancreas is unremarkable. There is a small accessory spleen. There is no mass or hydronephrosis in the kidneys. There is no adenopathy. Appendix is normal. There is no small bowel obstruction. Bladder is mildly distended. IMPRESSION: 1. No bowel obstruction noted. 2. Bladder distention. 3. No abdominal or pelvic mass or acute finding in the abdomen or pelvis. PQRS Compliance Statement: One or more of the following individualized dose reduction techniques were utilized for this examination: 1. Automated exposure control 2. Adjustment of the mA and/or kV according to patient size 3. Use of iterative reconstruction technique Electronically signed by: Nakul Carr MD (09/13/2020 3:10 PM) [facility] DICTATED and SIGNED BY: NAKUL CARR MD DATE: 09/13/20 [id number] 0 Course & Med Decision Making: Course & Med Decision Making Pertinent Labs and Imaging studies reviewed. (See chart for details) See HPI. Alert and oriented x4. Ambulatory with a steady gait. Speaks in full clear sentences. Epigastric area of abdomen is tender to palpation but abdomen is otherwise soft and nontender. Skin pink warm and dry. As patient is heaving and spitting in the bucket in the ED there looks to be some specks of old blood coming up. Patient is dehydrated. Urine is positive for cocaine and marijuana again. CT abdomen pelvis shows no acute findings. Patient settled down and became much more cooperative and calm after Haldol was given. Patient is laying comfortably in bed but stating that he still having some abdominal pain a 10 out of 10. Patient is given 25mcg of fentanyl. Patient is being p.o. challenged. He is going to be discharged home. Patient is p.o. challenged successfully. [] Tra Disclaimer: Tra Disclaimer: This electronic medical record was generated, in whole or in part, using a voice recognition dictation system. Departure Departure Impression: Primary Impression: Cyclical vomiting Additional Impressions: Marijuana abuse Cocaine abuse Disposition: HOME / SELF CARE / HOMELESS Condition: STABLE Referrals: NO PCP (PCP) Patient Instructions: Cocaine Abuse-Brief, Cyclic Vomiting Syndrome, Marijuana Abuse-Brief Additional Instructions: Follow-up with primary care provider. Stop using illegal drugs. Drink plenty of fluids. ROSEANN SHERIFF PRODUCT SAFETY TECHNICIAN Sep 13, 2020 13:13
[2020-09-13] MEDS ORDERED: fentaNYL PF VIAL 100 MCG/2 ML VIAL IVP ONE ×2 (13:15→15:30)
[2020-09-13] MEDS ORDERED: FAMOTIDINE 20 MG/2 ML VIAL IVP ONE (13:15)
[2020-09-13] MEDS ORDERED: ONDANSETRON PF 4 MG/2 ML VIAL. IVP ONE (13:15)
[2020-09-13] MEDS ORDERED: IV NORMAL SALINE 1000ML BAG 1,000 ML IV SCH (13:15)
[2020-09-13 13:26] LABS: BASO # 0.1 x10^3/uL (0.0-0.2); BASO % 1 % (0-3); EOS # 0.3 x10^3/uL (0.0-0.7); EOS % 2 % (0-3); HEMATOCRIT 43.7 % (39.0-53.0); HEMOGLOBIN 15.5 g/dL (13.0-17.5); LYMPH # 3.2 x10^3/uL (1.0-4.8); LYMPH % 26 % (24-48); MEAN CORPUSCULAR HEMOGLOBIN 29 pg (25-35); MEAN CORPUSCULAR HGB CONC 36 g/dL (31-37); MEAN CORPUSCULAR VOLUME 81 fL (79-100); MONO # 0.9 x10^3/uL (0.0-1.1); MONO % 7 % (0-9); NEUT # 8.1 x10^3/uL (1.8-7.7); NEUT % 64 % (31-73); PLATELET COUNT 301 x10^3/uL (140-400); RED BLOOD COUNT 5.41 x10^6/uL (4.30-5.70); RED CELL DISTRIBUTION WIDTH 13.6 % (11.5-14.5); WHITE BLOOD COUNT 12.6 x10^3/uL (4.0-11.0)
[2020-09-13] MEDS ORDERED: HALOPERIDOL LACTATE 5 MG/ML VIAL. IVP ONE (13:30)
--- NOTE | 2020-09-13 14:02 | RAD ---
AP chest. HISTORY: Vomiting AP view was taken of the chest. There is no pneumothorax or pleural effusion. Lungs are free of infil trates. Heart is normal in size. Patient has not taken a deep inspiration. IMPRESSION: 1. No acute infiltrates. Electronically signed by: Nakul Carr MD (09/13/2020 2:00 PM) [facility]
[2020-09-13 14:42] LABS: CALCIUM 9.1 mg/dL (8.5-10.1); CREATININE 1.2 mg/dL (0.7-1.3); GFR 79.6; POTASSIUM 3.4 mmol/L (3.5-5.1)
[2020-09-13 14:46] LABS: ALBUMIN 4.2 g/dL (3.4-5.0); ALBUMIN/GLOBULIN RATIO 1.2 (1.0-1.7); TOTAL BILIRUBIN 1.1 mg/dL (0.2-1.0); TOTAL PROTEIN 7.8 g/dL (6.4-8.2)
[2020-09-13] MEDS ORDERED: IOHEXOL 300 MG/ML 100ML VIAL. IV ONE (15:00)
[2020-09-13] MEDS ORDERED: CONTRAST GIVEN. MC PRN (15:00)
[2020-09-13] MEDS ORDERED: IV NORMAL SALINE 1000ML BAG 1,000 ML IV ONE (15:00)
--- NOTE | 2020-09-13 15:12 | RAD ---
CT abdomen pelvis with contrast. HISTORY: Vomiting CT abdomen pelvis was done using 75 mL Omnipaque 300 contrast. Comparison is made to study from August 2016. Lung bases are clear. There is no effusion. Liver is normal in appearance. There is no calcifie d gallstone. Spleen and adrenal glands are normal. Pancreas is unremarkable. There is a small accesso ry spleen. There is no mass or hydronephrosis in the kidneys. There is no adenopathy. Appendix is nor mal. There is no small bowel obstruction. Bladder is mildly distended. IMPRESSION: 1. No bowel obstruction noted. 2. Bladder distention. 3. No abdominal or pelvic mass or acute finding in the abdomen or pelvis. PQRS Compliance Statement: One or more of the following individualized dose reduction techniques were utilized for this examinat ion: 1. Automated exposure control 2. Adjustment of the mA and/or kV according to patient size 3. Use of iterative reconstruction technique Electronically signed by: Nakul Carr MD (09/13/2020 3:10 PM) [facility]
[2020-09-13 15:17] LABS: BILIRUBIN,URINE NEGATIVE (NEG); CLARITY,URINE CLEAR; COLOR,URINE YELLOW; NITRITE,URINE NEGATIVE (NEG); PROTEIN,URINE NEGATIVE (NEG-TRACE); UROBILINOGEN,URINE 0.2 mg/dL (0.2 mg/dL)
[2020-09-13 15:26] LABS: BACTERIA,URINE 0 /HPF (0-FEW); BARBITURATES NEG (NEG); BENZODIAZEPINES NEG (NEG); CANNABINOIDS POS (NEG); COCAINE POS (NEG); METHADONE NEG (NEG); OPIATES NEG (NEG); PHENCYCLIDINE NEG (NEG); RBC,URINE OCC /HPF (0-2); WBC,URINE 0 /HPF (0-4)
[2020-09-13 15:27] LABS: AMPHETAMINE/METHAMPHETAMINE NEG (NEG)
[2020-09-13 15:48] VITALS: BP 154/67
--- NOTE | 2020-09-13 18:58 | EKG ---
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
== END 2020-09-13 16:13 | disposition home or self-care (01) ==
LOC: ER 12:58
DX: R11.15 Cyclical vomiting syndrome unrelated to migraine (principal); F12.10 Cannabis abuse, uncomplicated; F14.10 Cocaine abuse, uncomplicated; F17.200 Nicotine dependence, unspecified, uncomplicated
CPT/HCPCS: 36415; 71045; 74177; 80053; 80307; 81001; 83690; 84484; 85025; 93005; 96361; 96374; 96375; 96376; 99285; J1630; J2405; J3010; J3490; J7030; Q9967